=== PATIENT | male | born 1950 | race Caucasian/White ===

== ENCOUNTER 2016-04-17 14:00 | Outpatient (CLI) | payer MEDICARE, OTHER ==
[2015-09-14 17:24] VITALS: BP 118/81
== END 2016-04-17 14:02 ==
LOC: NEPHRO 14:00
PROVIDERS: ATTEND Internal Medicine Nephrology
DX: N18.4 Chronic kidney disease, stage 4 (severe) (principal); N17.9 Acute kidney failure, unspecified; N25.89 Other disorders resulting from impaired renal tubular function
CPT/HCPCS: G0463

== ENCOUNTER 2016-07-16 14:02 | Outpatient (CLI) | payer MEDICARE, OTHER ==
[2015-09-14 17:24] VITALS: BP 118/81
== END 2016-07-16 14:03 ==
LOC: NEPHRO 14:02
PROVIDERS: ATTEND Internal Medicine Nephrology
DX: N18.9 Chronic kidney disease, unspecified (principal); E03.9 Hypothyroidism, unspecified
CPT/HCPCS: G0463

== ENCOUNTER 2016-07-16 14:34 | Outpatient (CLI) | payer MEDICARE, OTHER ==
[2015-09-14 17:24] VITALS: BP 118/81
[2016-07-16 14:53] LABS: BASOPHILS % 0.4 (0.0-1.5); EOSINOPHILS % 1.2 % (0.0-6.8); MEAN CORPUSCULAR HEMOGLOBIN 30.2 pg (28.0-34.0); MEAN CORPUSCULAR VOLUME 90.6 fl (80.0-100.0); MONOCYTES % 5.6 % (0.0-11.0); NEUTROPHILS # 4.3 # k/uL (1.4-7.7)
[2016-07-16 15:00] LABS: APPEARANCE,URINE Clear (CLEAR); COLOR,URINE Yellow (YELLOW); OCCULT BLOOD,URINE Trace-lysed (NEGATIVE); UROBILINOGEN URINE 0.2 Eu (0.2-1.0)
[2016-07-16 15:25] LABS: eGFR (African) 37; eGFR (Non-African) 30
[2016-07-17 01:02] LABS: PROTEIN mg/dL <4 mg/dL
== END 2016-07-16 14:35 ==
LOC: LAB 14:34
PROVIDERS: ATTEND Internal Medicine Nephrology
DX: N18.9 Chronic kidney disease, unspecified (principal); E03.9 Hypothyroidism, unspecified
CPT/HCPCS: 36415; 80053; 81002; 82570; 83970; 84156; 85025; G0463

== ENCOUNTER 2017-03-06 10:12 | Outpatient (CLI) | payer MEDICARE, OTHER ==
[2015-09-14 17:24] VITALS: BP 118/81
== END 2017-03-06 10:13 ==
LOC: OUT 10:12
PROVIDERS: ATTEND Colon & Rectal Surgery
DX: R19.4 Change in bowel habit (principal); F20.9 Schizophrenia, unspecified; I10 Essential (primary) hypertension; N18.9 Chronic kidney disease, unspecified; I71.9 Aortic aneurysm of unspecified site, without rupture
CPT/HCPCS: G0463

== ENCOUNTER 2017-03-07 11:22 | Outpatient (CLI) | payer MEDICARE, OTHER ==
[2015-09-14 17:24] VITALS: BP 118/81
[2017-03-07 12:04] LABS: eGFR (African) 35; eGFR (Non-African) 29
== END 2017-03-07 11:23 ==
LOC: RAD 11:22
PROVIDERS: ATTEND Family Medicine
DX: I71.9 Aortic aneurysm of unspecified site, without rupture (principal)
CPT/HCPCS: 36415; 82565

== ENCOUNTER 2017-03-27 07:34 | Day surgery (SDC) | payer MEDICARE, OTHER ==
[2015-09-14 17:24] VITALS: BP 118/81
[2017-03-27] MEDS ORDERED: PROPOFOL 500 MG/50 ML VIAL IV ONE (08:00)
[2017-03-27] MEDS ORDERED: SALINE FLUSH 10 ML DISP.SYRIN IVF ONE (08:00)
[2017-03-27] MEDS ORDERED: LACTATED RINGERS 1,000 ML IV.SOLN IV ONE (08:00)
--- NOTE | 2017-03-27 15:32 | Operative Note ---
SURGEON: Mike Joseph MD ANESTHESIA: MAC anesthesia. ESTIMATED BLOOD LOSS: None. COMPLICATIONS: None. PREOPERATIVE DIAGNOSES: 1. Screening colonoscopy. 2. Constipation. POSTOPERATIVE DIAGNOSES: 1. Rectal irritation. 2. Hemorrhoids. 3. Poor prep. PROCEDURE PERFORMED: Colonoscopy to splenic flexure aborted due to very poor prep. INDICATION FOR THE PROCEDURE: This is a 66-year-old man who has had recent difficulty evacuating his stools. He has never had a colonoscopy. He presents for a colonoscopy today. DESCRIPTION OF PROCEDURE: Patient was brought to the endoscopy suite and placed in the left lateral decubitus position. A rectal examination was performed. He had a patulous anus.. No masses were found. The colonoscope was inserted. He had a very poor prep. We were able to advance to the splenic flexure but not beyond this due to the extremely poor prep and it did not seem safe. The colonoscope was retracted. At dentate line, there was an area of either metaplastic hemorrhoid change or possibly an adenomatous change. This was biopsied. There was no bleeding from this. The colonoscope was removed. FINDINGS: A small area at the dentate line that was either a metaplastic hemorrhoid change or a polyp. This was biopsied. DISPOSITION: I recommended an air contrast barium enema to look at the rest of his colon and we will await the biopsy results for further treatment of this rectal area. cc: Dr. Glenny OTTO
== END 2017-03-27 07:35 ==
LOC: OPSURG 07:34
PROVIDERS: ATTEND Colon & Rectal Surgery
DX: Z12.11 Encounter for screening for malignant neoplasm of colon (principal); K64.8 Other hemorrhoids; K59.00 Constipation, unspecified
CPT/HCPCS: 45380; J2704; J7120; S1016

== ENCOUNTER 2018-01-05 09:19 | Emergency (ER) | payer MEDICARE, OTHER ==
[2018-01-05] MEDS ORDERED: 0.9 % SODIUM CHLORIDE 500 ML IV ONE (09:24)
--- NOTE | 2018-01-05 09:31 | ED Physician Documentation ---
Fall - HISTORIAN Historian: patient, paramedics, other ([facility] records) - HPI Stated Complaint: fall Chief Complaint: General Adult Additional Information: Says he got up to get his food tray from under the faucet, lost his balance and fell. Got himself up and sat in chair. He thinks there is an injury to his upper arm. He says it hurts. Doesn't know when this happened, but it was this morning. Per EMS, can't put weight on left arm. NH said mental status since fall, however pt is oriented to person, place time, on arrival in ER. Pulse ox 87 on RA when EMS arrived. 100% on 4L/NC. Pt also says he has rectal pain, but this is new. H has chronic constipation. No other modifying factors or associated signs. - ROS CONST: no problems NEURO: anxiety, depression - PAST HX Past History: other (NIDDM, Paranoid Schizophrenia, Ataxia, Nephropathy, ascending aortic aneurysm, CKD, anxiety, depression, hypothyroied, schizoaffective disorder, NIDDM) Allergies/Adverse Reactions: Allergies Allergy/AdvReac Type Severity Reaction Status Date / Time No Known Drug Allergies Allergy Verified 01/05/18 09:43 Home Medications: Ambulatory Orders Medication Instructions Recorded Finasteride 5 mg PO 1800 u2 09/22/12 Acetaminophen [Tylenol] 650 mg PO Q6 PRN 06/17/14 Multivitamin [Tab-A-Kayla] 1 each PO DAILY 06/17/14 Polyethylene Glycol 3350 [Miralax] 17 gm PO 08 06/17/14 Calcitriol 0.25 mcg PO SEE.INSTRUCTIONS av 01/17/15 Psyllium Seed (with Sugar) 2 tbsp PO DAILY 01/17/15 [Metamucil Powder] Aspirin [Marietta] 81 mg PO D 09/14/15 Clonazepam 1 mg PO BID 09/14/15 Glycopyrrolate [Robinul] 1 mg PO TID 09/14/15 LORazepam [Ativan] 0.5 mg PO Q6 PRN 09/14/15 Magnesium, Aluminum Hydroxide 30 ml PO Q4 PRN 09/14/15 [Maalox] Sodium Chloride [Saline Nasal Mist] 09/14/15 Trazodone HCl 75 mg PO HS 09/14/15 Atorvastatin Calcium 20 mg PO HS 01/05/18 Benztropine Mesylate [Cogentin] 0.5 mg PO TID 01/05/18 Docusate Sodium [Colace] 100 mg PO DAILY 01/05/18 Linaclotide [Linzess] 145 mcg PO QDAY 01/05/18 Risperidone [Risperdal] 3 mg PO BID 01/05/18 Sertraline HCl [Zoloft] 125 mg PO DAILY 01/05/18 Sodium Bicarbonate 650 mg PO BID 01/05/18 - SOCIAL HX Smoking History: non-smoker - FAMILY HX Family History: no significant history - VITAL SIGNS Vital Signs: Vital Signs Temp Pulse Resp BP Pulse Ox 118/81 09/14/15 17:03 - REVIEWED ASSESSMENTS Nursing Assessment Reviewed: Yes Vitals Reviewed: Yes Progress - Progress Progress: 1000, spoke with patient's brother Cash, )whom [place] indicates is patient's POA. Cash gives permission for [facility] orthopedics to be consulted pt to be transferred there if needed. Report Submission Date: Jan 05, 2018 10:08:39 AM CDT Patient Study Name: REYNA MAO Date: Jan 05, 2018 9:30:21 AM CDT Modality Type: DX Gender: M Description: SHOULDER : 46 Institution: [facility] Physician: AIDE BANKS - ER Examination: Plain film left shoulder History: PT STATES HE FELL THIS AM - PAIN IN LEFT ARM AND SHOULDER (Hx) Comparison exams: None provided Findings: 3 views of the left shoulder demonstrates a transverse lucency/fracture involving the humeral neck. One complete shaft length displacement. No humeral head dislocation from the glenoid. Acromioclavicular joint degenerative changes. Impression: Fracture/displacement proximal humerus at the humeral neck. Electronically signed on Jan 05, 2018 10:08:39 AM CDT by: Tien Graf [id number], accepted for transfer to [facility] ER per Dr. Rickey Diana. ED Results Lab/Radiology - Orders Orders: ED Orders Category Date Time Status Place IV Lock 1T Care 01/05/18 09:24 Active SHOULDER 2 VIEWS OR MORE [RAD] Stat Exams 01/05/18 Ordered CBC/PLATELET/DIFF Routine Lab 01/05/18 Ordered CMP Routine Lab 01/05/18 Ordered URINALYSIS Routine Lab 01/05/18 Ordered 0.9 % Sodium Chloride [Normal Saline] 500 ml Med 01/05/18 09:24 Active IV NOW Fall Physical Exam - Physical Exam General Appearance: no acute distress (flat affect), alert Head: no swelling, no obvious injury Neck: non-tender, decreased ROM (flexion contracture/position of habit) Eye: lids & conjunct. nml ENT: nml external inspection (many absent teeth and poor dentition), airway nml Resp/CVS: breath sounds nml, no resp. distress, heart sounds nml Abdomen: soft, no organomegaly, normal bowel sounds, non-tender Neuro: oriented x3 (person, place, date, time), CN's nml as tested, sensation nml, motor nml. No: facial asymmetry Skin: color nml, skin rash (scratches scattered over left arm), warm, dry Back: normal inspection Extremities: other (swelling L ant shoulder. bony overgrowth left 1st MTP) Joint: limited ROM (L arm) Discharge Clincal Impression: Fracture of humerus, left, closed Qualifiers: Encounter type: initial encounter Humerus Location: surgical neck Fracture morphology: 2-part Fracture alignment: displaced Qualified Code(s): S42.222A - 2-part displaced fracture of surgical neck of left humerus, initial encounter for closed fracture Referrals: Glenny Stallworth MD [Primary Care Provider] - 2 Days Condition: Fair Disposition: 02 XFER [facility]M HOSP Decision to Admit: NO Decision Time: 10:33
--- NOTE | 2018-01-05 10:33 | Diagnostic Imaging Report ---
AIDE BANKS [facility] [address] [facility] [address] [address] Report Submission Date: Jan 05, 2018 10:08:39 AM CDT Patient Study Name: REYNA MAO Date: Jan 05, 2018 9:30:21 AM CDT Modality Type: DX Gender: M Description: SHOULDER : 46 Institution: [facility] Physician: AIDE BANKS Examination: Plain film left shoulder History: PT STATES HE FELL THIS AM - PAIN IN LEFT ARM AND SHOULDER (Hx) Comparison exams: None provided Findings: 3 views of the left shoulder demonstrates a transverse lucency/fracture involving the humeral neck. One complete shaft length displacement. No humeral head dislocation from the glenoid. Acromioclavicular joint degenerative changes. Impression: Fracture/displacement proximal humerus at the humeral neck. Electronically signed on Jan 05, 2018 10:08:39 AM CDT by: Tien OTTO
[2018-01-05 11:12] VITALS: BP 100/77
[2018-01-05 11:22] LABS: BASO % 0.4 % (0.0-1.5); EOS % 0.4 % (0.0-6.8); MCH. 30.4 pg (28.0-34.0); MCV 90.6 fL (80.0-100.0); MONOCYTE % 3.1 % (0.0-11.0); PLATELET COUNT 156 thou/uL (130-400)
== END 2018-01-05 11:05 | disposition short-term general hospital (02) ==
LOC: ED 09:19
DX: S42.222A 2-part displaced fracture of surgical neck of left humerus, initial encounter for closed fracture (principal); W19.XXXA Unspecified fall, initial encounter; Y92.9 Unspecified place or not applicable; Y93.9 Activity, unspecified; Y99.9 Unspecified external cause status
CPT/HCPCS: 73030; 80053; 81002; 85025; J7060; 96365; 99284; S1016

== ENCOUNTER 2018-03-30 16:19 | Outpatient (CLI) | payer MEDICARE, OTHER | END 2018-03-30 16:21 | LOC: LAB 16:19 | PROVIDERS: ATTEND Internal Medicine Geriatric Medicine | DX: Z79.01 Long term (current) use of anticoagulants (principal) | CPT/HCPCS: 36415; 85610 ==